=== PATIENT | female | born 1980 | race Caucasian/White ===

== ENCOUNTER 2016-10-15 15:46 | Emergency (ER) | payer MEDICAID, OTHER ==
[~2016-10-15] VITALS: Ht 157.5 cm; Wt 91.5 kg
[2016-10-15 16:05] VITALS: Ht 157.5 cm; Wt 91.5 kg
[2016-10-15] MEDS ORDERED: PHENAZOPYRIDINE 100 MG TAB PO ONE (17:00)
[2016-10-15] MEDS ORDERED: LANT3I SC (17:44)
[2016-10-15] MEDS ORDERED: ARIP400S IM (17:45)
[2016-10-15 18:07] LABS: ADD UMIC YES; URINE BILIRUBIN (Dip) NEGATIVE (NEGATIVE); URINE BLOOD (Dip) NEGATIVE (NEGATIVE); URINE KETONES (Dip) TRACE (NEGATIVE); URINE LEUKOCYTE ESTERASE (Dip) 1+ (NEGATIVE); URINE NITRITE (Dip) NEGATIVE (NEGATIVE); URINE TOTAL PROTEIN (Dip) NEGATIVE (NEGATIVE); URINE UROBILINOGEN (Dip) 0.2 E.U./dL (0.1-1.0)
[2016-10-15 18:16] LABS: BACTERIA,URINE MODERATE; SQUAMOUS EPITHELIAL CELL,UR MODERATE; URINE COLOR YELLOW (YELLOW); URINE RBCS NONE SEEN /HPF (0)
[2016-10-15] MEDS ORDERED: PHEN-538 PO (18:26)
[2016-10-15] MEDS ORDERED: NITR-58 PO (18:26)
[2016-10-15 18:41] VITALS: BP 118/79; PULSE 70; RESP 18; TEMP 98
--- NOTE | 2016-10-15 18:57 | ERD ---
ER Documentation Chief Complaint Date/Time DATE: 10/15/16 TIME: 18:54 Chief Complaint VAGINAL FEELINGS OF BEING LICKED AND TOUCHED, PELVIC PAIN, SENT HERE BY PMD HPI Patient is a 36-year-old female with depression and psychosis who presents saying "I feel like I am getting licked my vagina when nobody is there". The patient said that she feels sick when brushing her teeth because somebody might have used that toothbrush in their vagina. The patient said that she has had 3 years of these symptoms. She feels pain in her vagina which she describes as a 10 out of 10. She says "I feel pain for my brain to my vagina". She has a history of psychiatric disease and does have a psychiatrist. She went to an urgent care and was sent to the ER for further evaluation. She denies suicidal or homicidal ideation. ROS All systems reviewed and are negative except as per history of present illness. Medications Home Meds Active Scripts Phenazopyridine Hcl* (Pyridium*) 200 Mg Tab, 200 MG PO TID Y for URINARY PAIN, # 6 TAB Prov:DIONI CARTY MD 10/15/16 Nitrofurantoin Monohyd Macrocr* (Macrobid*) 100 Mg Capsr, 100 MG PO BID for 7 Days, CAP Prov:DIONI CARTY MD 10/15/16 Reported Medications Aripiprazole* (Abilify* Maintena) 400 Mg Suser.vial, 400 MG IM Q28D, VIAL 10/15/16 Insulin Glargine* (Lantus*) 100 Unit/Ml Soln, 18-22 UNIT SC QHS, #1 VIAL 10/15/16 Allergies Allergies: Coded Allergies: No Known Allergy (Unverified , 10/15/16) PMhx/Soc Medical and Surgical Hx: pt denies Surgical Hx History of Surgery: No Anesthesia Reaction: No Hx Neurological Disorder: No Hx Respiratory Disorders: No Hx Cardiac Disorders: No Hx Psychiatric Problems: Yes (depression) Hx Miscellaneous Medical Probl: Yes (diabetes) Hx Alcohol Use: No Hx Substance Use: No Hx Tobacco Use: No Smoking Status: Never smoker FmHx Family History: No diabetes Physical Exam Vitals Vital Signs Date Time Temp Pulse Resp B/P Pulse Ox O2 Delivery O2 Flow Rate FiO2 10/15/16 18:41 98.0 70 18 118/79 97 Room Air 10/15/16 16:59 98.3 77 17 123/81 96 10/15/16 16:05 98.4 90 18 117/89 96 Physical Exam Const: No acute distress Head: Atraumatic Eyes: Normal Conjunctiva ENT: Normal External Ears, Nose and Mouth. Neck: Full range of motion..~ No meningismus. Resp: Clear to auscultation bilaterally Cardio: Regular rate and rhythm, no murmurs Abd: Soft, non tender, non distended. Normal bowel sounds Skin: No petechiae or rashes Back: No midline or flank tenderness Ext: No cyanosis, or edema Neur: Awake and alert Psych: The patient has good insight into her psychosis and delusions and realizes that this feeling is a delusion, there is no suicidal or homicidal ideation Results 24 hrs Laboratory Tests Test 10/15/16 16:30 10/15/16 16:49 Urine Color YELLOW Urine Clarity SLIGHTLY CLOUDY Urine pH 5.5 Urine Specific [place] >=1.030 Urine Ketones TRACE Urine Nitrite NEGATIVE Urine Bilirubin NEGATIVE Urine Urobilinogen 0.2 E.U./dL Urine Leukocyte Esterase 1+ Urine Microscopic RBC NONE SEEN/HPF Urine Microscopic WBC 10-25/HPF Urine Squamous Epithelial Cells MODERATE Urine Bacteria MODERATE Urine Hemoglobin NEGATIVE Urine Glucose 0.5%% Urine Total Protein NEGATIVE Bedside Glucose 322mg/dL Current Medications Medications (Trade) Dose Ordered Sig/Alba Route PRN Reason Start Time Stop Time Status Last Admin Dose Admin Phenazopyridine HCl (Pyridium) 200 mg ONCE ONCE PO 10/15/16 17:00 10/15/16 17:01 DC 10/15/16 16:54 Procedures/MDM Urine test is negative. Urinalysis is positive for infection. Patient is a 36-year-old female presents with vaginal pain. She is not I doubt or ectopic . However the patient does have acute cystitis and I will treat her with Macrobid and Pyridium. She will also need to follow-up with her psychiatrist. I do not believe there is any criteria for 5150 hold. She can return sooner for any worsening symptoms. Departure Diagnosis: Primary Impression: Hyperglycemia Additional Impression: Cystitis Condition: Fair Patient Instructions: Hyperglycemia (High Blood Sugar), Cystitis Additional Instructions: Call your primary care doctor TOMORROW for an appointment during the next 1-2 days.See the doctor sooner or return here if your condition worsens before your appointment time. DIONI CARTY MD Oct 15, 2016 18:57
== END 2016-10-15 18:42 | disposition home or self-care (01) ==
LOC: E/R 15:46
DX: E11.65 Type 2 diabetes mellitus with hyperglycemia (principal); N30.90 Cystitis, unspecified without hematuria; Z79.4 Long term (current) use of insulin
CPT/HCPCS: 81001; 81003; 82962; Z7502; Z7610; 99283

== ENCOUNTER 2017-02-17 19:31 | Emergency (ER) | END 2017-02-17 22:15 | disposition home or self-care (01) | DX: F22 Delusional disorders (principal); E11.9 Type 2 diabetes mellitus without complications; Z79.4 Long term (current) use of insulin | CPT/HCPCS: 81001; Z7502; Z7610 ==